=== PATIENT | male | born 1940 | race Caucasian/White ===

== ENCOUNTER 2019-10-10 12:34 | Outpatient (CLI) | payer MEDICARE, BC, SELFPAY ==
--- NOTE | 2019-10-10 12:15 | XRR_ITS ---
PROCEDURE INFORMATION: Exam: XR Abdomen, 1 View Exam date and time: 10/10/2019 12:51 PM Age: 79 years old Clinical indication: Condition or disease; Other: Ureteral calculus TECHNIQUE: Imaging protocol: XR of the abdomen. Views: Frontal supine view of the abdomen. 1 View. COMPARISON: CR Abdomen Series Acute [id number] 10/27/2016 1:47 AM FINDINGS: Gastrointestinal tract: Postsurgical stoma is seen in the left lower pelvis stable since prior. No bowel dilation. Bones/joints: Unremarkable. Negative for urinary tract stones. XR/XR KUB [id number] IMPRESSION: No acute findings. Stable surgical stoma left lower pelvis Negative for radiodense urinary tract stones
== END 2019-10-10 12:35 | disposition home or self-care (01) ==
LOC: RAD 12:38
PROVIDERS: Family Provider Family Medicine; PCP Family Medicine; Visit Provider Urology
DX: N20.1 Calculus of ureter (principal)
CPT/HCPCS: 74018; 81001; 87086

== ENCOUNTER → 2020-04-29 14:28 | Outpatient (BNVA) | payer MEDICARE, BC, SELFPAY | PROVIDERS: Family Provider Family Medicine; PCP Family Medicine; Visit Provider Urology | DX: R33.9 Retention of urine, unspecified (principal); N39.0 Urinary tract infection, site not specified; R97.20 Elevated prostate specific antigen [PSA] | CPT/HCPCS: 81001; 84153 ==

== ENCOUNTER 2020-08-29 13:14 | Emergency (ER) | payer MEDICARE, BC, SELFPAY ==
[2020-08-29] VITALS (7 sets, daily range): BP systolic 133–156; BP diastolic 65–91; PULSE 18–69; RESP 16–139; TEMP 36.9; O2SAT 94–98; BMI 33.0
--- NOTE | 2020-08-29 13:41 | ECG_ITS ---
[facility] Test Date: 2020-08-29 Pat Name: Dwight Cash Department: Room: Gender: Male Field Service Manager: : 1940 Requested By: Tenzin Gustafson Order Number: [id number] Eleazar MD: Jeremías Syed M.D. Measurements Intervals [place] Rate: 55 P: 2 FL: 257 QRS: 5 QRSD: 107 T: 67 QT: 429 QTc: 412 Interpretive Statements SINUS BRADYCARDIA WITH FIRST DEGREE AV BLOCK INFERIOR MYOCARDIAL INFARCTION , PROBABLY OLD [40+ ms Q WAVE AND/OR ST/T ABNORMALITY IN II/aVF] Compared to ECG 10/27/2016 01:52:03 First degree AV block now present Sinus rhythm no longer present Myocardial infarct finding still present Electronically Signed On 08-29-2020 16:40:14 MACHINE SETTER AUTOMATIC by Jeremías Syed M.D. [id number]
--- NOTE | 2020-08-29 13:41 | XRR_ITS ---
PROCEDURE INFORMATION: Exam: XR Chest, 1 View Exam date and time: 08/29/2020 2:06 PM Age: 80 years old Clinical indication: Chest pain TECHNIQUE: Imaging protocol: XR of the chest Views: 1 view. COMPARISON: CR Chest 1 [place] [id number] 08/21/2016 7:39 PM FINDINGS: Lungs: Unremarkable. No consolidation. Pleural space: Unremarkable. No pleural effusion. No pneumothorax. Heart/Mediastinum: Unremarkable. No cardiomegaly. Bones/joints: Unremarkable. XR/XR chest 1V portable [id number] IMPRESSION: No acute findings.
--- NOTE | 2020-08-29 14:25 | W.ED.CHESTPA ---
HPI - Chest Pain General: Chief Complaint: Chest Pain Stated Complaint: CHEST PAIN Time Seen by Provider: 08/29/20 13:34 History of Present Illness: HPI narrative: The patient is a 80-year-old maleWith past medical history colon cancer with colectomy and colostomy years ago. He comes to the ER today complaining of midsternal chest pain radiating to his right chest and arm. He says earlier this morning he was eating some eggs and swallowed some orange juice and immediately felt midsternal chest pain which then began to radiate to his right chest wall and arm. He thought it was because of the orange juice and it would have gone away quickly however it did not it persisted for an hour and has eased up a little bit but is still present in the ER. He also complains of 2 weeks of right nipple pain with minimal pressure to the area. No drainage from the nipple or structural changes. This pain is different than the right chest pain he is having MD complaint: chest pain Onset: after eating Pain location: substernal and right chest Pain radiation: right arm Severity: moderate Quality: sharp Associated symptoms: Reports nausea; Deny abdominal pain, dyspnea, palpitations or vomiting Review of Systems General: Reports: 10 or more systems reviewed and unremarkable except in HPI and below Const: Denies: fatigue Eyes: Denies: change in vision, blurry vision or eye redness ENMT: Denies: throat pain, swelling of lips/tongue, ear or mastoid pain or nasal congestion Card: Reports: chest pain and other (right nipple pain); Denies: palpitations, irregular heart rhythm, edema, dyspnea on exertion or orthopnea Resp: Denies: dyspnea, productive cough or non-productive cough GI: Reports: nausea; Denies: abdominal pain, vomiting, diarrhea or GI cramping : Denies: flank pain, urinary frequency or urinary urgency Musc: Denies: neck pain, back pain, extremity pain, joint pain, joint redness, limited range of motion or muscle weakness Skin/Breast: Denies: rash, pruritus, erythema, skin pain or skin tenderness Neuro: Denies: headache(s), numbness in extremities, weakness in extremities, sensory changes, difficulty walking, dizziness, confusion or Slurred speech present Psych: Denies: anxiety or depression Endo: Denies: polyuria All/Imm: Denies: urticaria, throat swelling or tongue swelling PFSH ED PFS: Medical History (Updated 08/29/20 @ 18:43 by Tenzin Gustafson MD) Elevated PSA Gross hematuria History of colon cancer HAS A 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 Mother No problems noted. Social History Smoking and tobacco status: former smoker Alcohol intake: never Adopted: No Caregiver/support person: No Lives independently: No Household members: spouse Marital status: Current occupational status: retired History of recent travel: No Physical Exam Const: COMMON NORMALS: no acute distress, average body habitus, patient oriented x3, no limitations, healthy appearing, alert and well nourished GENERAL APPEARANCE: cooperative, comfortable, well kempt and well developed ORIENTATION/CONSCIOUSNESS: Yes awake, Yes oriented to person, Yes oriented to place and Yes oriented to time HENMT: COMMON NORMALS: normocephalic, external ears normal and Normal external nose present HEAD & SCALP: normal to inspection and normocephalic NOSE: Normal external nose present EXTERNAL EAR: Yes external ears normal MOUTH: Normal oral and palatal mucosa present THROAT: posterior oropharynx normal Eye: COMMON NORMALS: Equal, round and reactive pupils present and EOMs intact bilaterally GENERAL EYE: appearance normal, both eyes and all related structures PUPIL: Yes Equal, round and reactive pupils present Neck/C-Spine: COMMON NORMALS: full ROM, no lymphadenopathy, no meningeal signs and no JVD GENERAL: Yes normal visual inspection Lymph: LYMPHATIC: no lymphadenopathy noted Chest: COMMONS NORMALS: normal inspection of the chest, normal palpation of entire chest wall and normal palpation of the breasts (Mild tenderness to right nipple. No mass palpated) Resp: COMMON NORMALS: normal respiratory effort, No retractions, No use of accessory muscles, clear to auscultation bilaterally and percussion normal EFFORT & INSPECTION: Yes able to speak in complete sentences AUSCULTATION: clear to auscultation bilaterally PERCUSSION: percussion normal Cardio: COMMON NORMALS: no JVD, regular rate, regular rhythm, S1 normal heart sound present, S2 normal heart sound present and Peripheral pulses 2+ throughout RATE: regular rate RHYTHM: regular rhythm HEART SOUNDS: S1 normal heart sound present and S2 normal heart sound present PERIPHERAL PULSES: Peripheral pulses 2+ throughout GI: COMMON NORMALS: Normal to inspection, nondistended, normoactive bowel sounds present, Soft to palpation, non-tender and no masses INSPECTION: Yes normal to inspection PALPATION: Yes Soft to palpation : COMMON NORMALS: Yes no CVA tenderness BLADDER/KIDNEY EXAM: Yes no CVA tenderness Back/Pelvis: COMMON NORMALS: no CVA tenderness, thoracic and lumbar spine normal to inspection, no thoracic nor lumbar tenderness and thoraco-lumbar ROM normal Extremity: COMMON NORMALS: normal to inspection, full ROM, capillary refill normal, no joint enlargement and no pedal edema GENERAL: Yes normal exam except as noted Neuro: COMMON NORMALS: patient oriented x3, CN's II-XII intact bilaterally, moves all extremities, no focal motor deficits, no sensory deficits noted and gait normal SENSORIUM/ORIENTATION: Yes alert, Yes oriented to person, Yes oriented to place and Yes oriented to time MENINGEAL SIGNS: Yes no meningeal signs Psych: COMMON NORMALS: mental status grossly normal, Normal thought process present, cooperative, normal affect and speech normal APPEARANCE: Yes well kempt ATTITUDE: Yes calm SPEECH: Yes normal speech THOUGHT PROCESS: Normal thought process present Skin: COMMON NORMALS: no rashes or lesions noted GENERAL SKIN EXAM: no rashes or lesions noted Course Vital Signs: Vital signs: Vital Signs Temperature 98.5 F 08/29/20 13:16 Pulse Rate 65 08/29/20 16:24 Respiratory Rate 16 08/29/20 16:24 Blood Pressure 136/65 08/29/20 16:24 Pulse Oximetry 98 08/29/20 16:24 MDM - Chest Pain Lab Data: Labs: Lab Results 08/29/20 08/29/20 08/29/20 Range/Units 14:20 14:22 14:22 WBC 6.7 (4.0-10.0) 10^3/ uL RBC 4.44 (4.1-5.3) 10^6/u L Hgb 13.7 (11.7-16.6) g/dL Hct 42.1 (42.0-52.0) % MCV 94.8 H (80-94) fL MCH 30.9 (28.0-34.0) pg MCHC 32.5 (30.0-36.0) g/dL RDW 13.6 (12.1-15.1) % Plt Count 208 (130-400) 10^3/c mm MPV 9.7 (7.4-10.4) fL Neut % (Auto) 61.5 % Lymph % (Auto) 24.6 % [place] % (Auto) 10.4 % Eos % (Auto) 2.5 % Baso % (Auto) 0.6 % Neut # (Auto) 4.11 (1.8-7.7) 10^3/u L Lymph # (Auto) 1.7 (0.8-4.8) 10^3/u L [place] # (Auto) 0.7 (0.2-0.9) 10^3/u L Eos # (Auto) 0.2 (0.0-0.8) 10^3/u L Baso # (Auto) 0.0 (0.0-0.1) 10^3/u L Nucleated RBC % (a uto) 0 % Nucleated RBCs # 0.0 /100WBC D-Dimer 0.39 (0-0.59) ug/mIFE U Sodium (136-145) mmol/L Potassium (3.5-5.1) mmol/L Chloride (98-107) mmol/L Carbon Dioxide (22-29) mmol/L Anion Gap (5-19) BUN (8-23) mg/dL Creatinine (0.7-1.2) mg/dL GFR Calculation Glucose (65-115) mg/dL Calculated Osmolal ity (285-295) mOsm/k g Calcium (8.5-10.5) mg/dL Total Bilirubin (0.15-1.2) mg/dL AST (0-40) U/L ALT (0-41) U/L Alkaline Phosphata se (40-130) IU/L Troponin T Baselin e (0-15) ng/L Troponin T 120 Min [place] (0-15) ng/L Delta Troponin T (0-10) ABS# NT-Pro-B Natriuret Pep (0-450) pg/mL Total Protein (6.6-8.7) g/dL Albumin (3.5-5.2) g/dL Globulin (1.3-4.6) g/dL Urine Color Yellow (Yellow) Urine Appearance Hazy A (CLEAR) Urine pH 8 H (5-7) Ur Specific Gravit y 1.020 (1.005-1.030) Urine Protein Neg (Negative) Urine Glucose (UA) Norm (Normal) Urine Ketones Negative (Negative) Urine Blood Neg (Negative) Urine Nitrate Negative (Negative) Urine Bilirubin Neg (Negative) Prot Sulfosalicyli c Acd Negative (Negative) Urine Urobilinogen Norm (Negative) mg/dL Ur Leukocyte Ashely ase Negative (Negative) Urine RBC None (0-2) /hpf Urine WBC Rare (0-5) /hpf Ur Squamous Epith Cells Rare (0-5) /hpf Amorphous Sediment 2+ /hpf Urine Bacteria Trace (NONE) /hpf 08/29/20 08/29/20 08/29/20 Range/Units 14:22 14:22 16:42 WBC (4.0-10.0) 10^3/ uL RBC (4.1-5.3) 10^6/u L Hgb (11.7-16.6) g/dL Hct (42.0-52.0) % MCV (80-94) fL MCH (28.0-34.0) pg MCHC (30.0-36.0) g/dL RDW (12.1-15.1) % Plt Count (130-400) 10^3/c mm MPV (7.4-10.4) fL Neut % (Auto) % Lymph % (Auto) % [place] % (Auto) % Eos % (Auto) % Baso % (Auto) % Neut # (Auto) (1.8-7.7) 10^3/u L Lymph # (Auto) (0.8-4.8) 10^3/u L [place] # (Auto) (0.2-0.9) 10^3/u L Eos # (Auto) (0.0-0.8) 10^3/u L Baso # (Auto) (0.0-0.1) 10^3/u L Nucleated RBC % (a uto) % Nucleated RBCs # /100WBC D-Dimer (0-0.59) ug/mIFE U Sodium 136 (136-145) mmol/L Potassium 4.4 (3.5-5.1) mmol/L Chloride 102 (98-107) mmol/L Carbon Dioxide 25 (22-29) mmol/L Anion Gap 13.4 (5-19) BUN 16 (8-23) mg/dL Creatinine 0.9 (0.7-1.2) mg/dL GFR Calculation Not Reportable Glucose 98 (65-115) mg/dL Calculated Osmolal ity 283 L (285-295) mOsm/k g Calcium 9.3 (8.5-10.5) mg/dL Total Bilirubin 0.4 (0.15-1.2) mg/dL AST 21 (0-40) U/L ALT 27 (0-41) U/L Alkaline Phosphata se 68 (40-130) IU/L Troponin T Baselin e 18 H (0-15) ng/L Troponin T 120 Min [place] 18.33 H (0-15) ng/L Delta Troponin T 0.33 (0-10) ABS# NT-Pro-B Natriuret Pep 118 (0-450) pg/mL Total Protein 5.6 L (6.6-8.7) g/dL Albumin 4.0 (3.5-5.2) g/dL Globulin 1.6 (1.3-4.6) g/dL Urine Color (Yellow) Urine Appearance (CLEAR) Urine pH (5-7) Ur Specific Gravit y (1.005-1.030) Urine Protein (Negative) Urine Glucose (UA) (Normal) Urine Ketones (Negative) Urine Blood (Negative) Urine Nitrate (Negative) Urine Bilirubin (Negative) Prot Sulfosalicyli c Acd (Negative) Urine Urobilinogen (Negative) mg/dL Ur Leukocyte Ashely ase (Negative) Urine RBC (0-2) /hpf Urine WBC (0-5) /hpf Ur Squamous Epith Cells (0-5) /hpf Amorphous Sediment /hpf Urine Bacteria (NONE) /hpf Discharge Plan Discharge Patient Disposition: Home Clinical Impression: Gastroenteritis, Atypical chest pain Condition: Stable Prescriptions: New Zofran 4 mg tablet 4 mg PO Q8H PRN (Reason: nausea and vomiting) 5 Days Qty: 14 RF: 0 No Action cholecalciferol (vitamin D3) 10 mcg (400 unit) capsule 10 mcg PO DAILY@08 RF: 0 alfuzosin 10 mg tablet extended release 24 hr 10 mg PO DAILY@18 RF: 0 omega-3 fatty acids 1,000 mg capsule 1,000 mg PO DAILY@08 RF: 0 ascorbate calcium (vitamin C) 500 mg tablet 500 mg PO DAILY@08 RF: 0 magnesium oxide 400 mg (241.3 mg magnesium) tablet 400 mg PO DAILY@08 RF: 0 Centrum Silver Ultra Men's 300-600-300 mcg tablet 1 tab PO DAILY@08 RF: 0 losartan 25 mg tablet 25 mg PO DAILY@18 RF: 0 carvedilol 3.125 mg tablet 3.125 mg PO BID@08,18 RF: 0 timolol 0.25 % drops 1 drop ophthalmic (eye) DAILY@08 RF: 0 ciprofloxacin HCl 500 mg tablet 500 mg PO DAILY PRN (Reason: infection) RF: 0 Zyrtec 10 mg Tablet 10 mg PO DAILY@18 RF: 0 aspirin 81 mg Tablet,Chewable 81 mg PO DAILY@18 RF: 0 finasteride 5 mg tablet 5 mg PO DAILY@08 RF: 0 Discharge Orders: Discharge ED (Routine); Ordered 08/29/20 Ordered By: Tenzin Gustafson Referrals: Mustapha Mendoza MD [Primary Care Provider] - Discharge Diet: Usual diet Discharge Activity: Increase activity as tolerated Patient Instructions: Gastroenteritis (ED) Activity Restrictions/Additional Instructions: You likely have a stomach bug. Please drink lots of fluids and return to the ER with worsening symptoms. The chest pain you have had is not typical of a heart attack pain. I have put in a case management referral to get you an appointment with a local other sports official please follow-up and get a stress test and echocardiogram if the doctor thinks it is clinically indicated at that time. Return to the ER with worsening chest pain and we will admit you for a stress test. I have prescribed you Zofran to help with the nausea until your symptoms improve. Coding Level of Care Code ED Printing Press Operator Apprentice for Marija Fwuma Exam Comprehensive
[2020-08-29 15:04] LABS: Basophils % 0.6 %; Eosinophils # 0.2 10^3/uL (0.0-0.8); Eosinophils % 2.5 %; Hematocrit 42.1 % (42.0-52.0); Hemoglobin 13.7 g/dL (11.7-16.6); Lymphocytes # 1.7 10^3/uL (0.8-4.8); Lymphocytes % 24.6 %; Mean Corpuscular HGB Conc 32.5 g/dL (30.0-36.0); Mean Corpuscular Hemoglobin 30.9 pg (28.0-34.0); Mean Corpuscular Volume 94.8 fL (80-94); Mean Platelet Volume 9.7 fL (7.4-10.4); Monocytes # 0.7 10^3/uL (0.2-0.9); Monocytes % 10.4 %; Neutrophils # 4.11 10^3/uL (1.8-7.7); Neutrophils % 61.5 %; Nucleated Red Blood Cells % 0 %; Platelet Count 208 10^3/cmm (130-400); Red Blood Count 4.44 10^6/uL (4.1-5.3); Red Cell Distribution Width 13.6 % (12.1-15.1); White Blood Count 6.7 10^3/uL (4.0-10.0)
[2020-08-29 15:17] LABS: D Dimer 0.39 ug/mIFEU (0-0.59)
[2020-08-29 15:27] LABS: Urine Appearance Hazy (CLEAR); Urine Color Yellow (Yellow); pH Urine 8 (5-7)
[2020-08-29 15:27] LABS: Troponin(5th) Baseline 18 ng/L (0-15)
[2020-08-29 15:30] LABS: Glucose Urine UA Norm (Normal); Ketones Urine Negative (Negative); Protein Urine Neg (Negative)
[2020-08-29 15:31] LABS: Add Urine Microscopic? YES; Bilirubin Urine Neg (Negative); Blood Urine Neg (Negative); Leukocyte Esterase Urine Negative (Negative); Nitrate Urine Negative (Negative); Sulfosalicylic Acid Urine Negative (Negative); Urobilinogen Urine Norm (Negative)
[2020-08-29 15:33] LABS: Add Urine Culture? No; Amorphous Sediment Urine 2+ /hpf; Bacteria Urine TRACE /hpf; Squamous Epithelial Cell Urine RARE /hpf (0-5); WBC Urine RARE /hpf (0-5)
[2020-08-29 15:36] LABS: Alanine Aminotransferase 27 U/L (0-41); Alkaline Phosphatase 68 IU/L (40-130); Aspartate Amino Transferase 21 U/L (0-40); Blood Urea Nitrogen 16 mg/dL (8-23); Calcium 9.3 mg/dL (8.5-10.5); Carbon Dioxide 25 mmol/L (22-29); Chloride 102 mmol/L (98-107); Globulin 1.6 g/dL (1.3-4.6); Glucose 98 mg/dL (65-115); NT Pro B Type Natriuretic Pept 118 pg/mL (0-450); Osmolality Calculated 283 mOsm/kg (285-295); Sodium 136 mmol/L (136-145); Total Bilirubin 0.4 mg/dL (0.15-1.2); Total Protein 5.6 g/dL (6.6-8.7)
--- NOTE | 2020-08-29 15:41 | ECG_ITS ---
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 Measurements Intervals [place] Rate: 55 P: 32 [place]: 257 QRS: 32 QRSD: 102 T: 72 QT: 414 QTc: 399 Interpretive Statements SINUS BRADYCARDIA WITH FIRST DEGREE AV BLOCK Compared to ECG 08/29/2020 13:28:06 Myocardial infarct finding no longer present Electronically Signed On 08-29-2020 16:47:05 KILN HAND by Jeremías Syed M.D. [id number]
[2020-08-29 15:59] LABS: Anion Gap 13.4 (5-19); Potassium 4.4 mmol/L (3.5-5.1)
[2020-08-29] MEDS: lidocaine 2% viscous 15 ML, aluminum-mag hydrox-simethicon 30 ML, sucralfate oral liq 1 GM PO (16:34)
[2020-08-29] MEDS: ondansetron 2 mg/ML SDV 2 mL 4 MG IVP (16:35)
[2020-08-29 17:22] LABS: Troponin 5 2HR 18.33 ng/L (0-15); Troponin 5 2HR Delta 0.33 ABS# (0-10)
--- NOTE | 2020-08-31 11:21 | DCPLANNER ---
golf course manager had message to schedule a follow up appointment for patient with cardiology. golf course manager called [facility], spoke with Jaqui, gave clinic patients information. A follow up appointment was scheduled for Sunday, September 22, 2019 at 9:[address] Mendoza. golf course manager called patient with appointment information.
--- NOTE | 2020-10-16 14:39 | DCPLANNER ---
Patient had a followup appointment scheduled for 09.22.19 with [facility] - patient did attend appointment.
== END 2020-08-29 18:53 | disposition home or self-care (01) ==
PROVIDERS: Emergency Provider Family Medicine; PCP Family Medicine
DX: R07.89 Other chest pain (principal); K52.9 Noninfective gastroenteritis and colitis, unspecified; Z79.82 Long term (current) use of aspirin; Z85.038 Personal history of other malignant neoplasm of large intestine; Z93.3 Colostomy status; Z87.891 Personal history of nicotine dependence
CPT/HCPCS: 12345; 36415; 71045; 80053; 81001; 83880; 84484; 85025; 85378; 93005; 96374; 99283; 99284; J2405

== ENCOUNTER 2020-09-23 08:59 | Outpatient (CLI) | payer MEDICARE, BC, SELFPAY ==
--- NOTE | 2020-09-23 09:25 | MM_ITS ---
WS: [id number] BILATERAL DIGITAL DIAGNOSTIC MAMMOGRAM MAMMOGRAPHY WITH CAD CLINICAL INFORMATION: RIGHT BREAST PAIN COMPARISON: None. TECHNIQUE: Bilateral CC, MLO, and ML views. FINDINGS: Scattered fibroglandular densities bilaterally. Punctate calcifications. Palpable marker right breast . Slightly asymmetric fibroglandular tissue in the area of palpable concern compared to the left. Ult rasound is pending. ULTRASOUND BREAST RIGHT TECHNIQUE: Ultrasound right breast focused area of concern. CLINICAL INFORMATION: RIGHT BREAST PAIN COMPARISON: None. FINDINGS: Ultrasound right breast at the areola in the area of concern. Normal shadowing deep to the areola wit h a few incidental dilated ducts. Left breast for comparison. No evidence of pathologic mass or lesio n to target for biopsy. Findings have a benign appearance. MM/[place] [id number] IMPRESSION: BI-RADS: 2-Benign FOLLOW UP: See Report
== END 2020-09-23 09:00 | disposition home or self-care (01) ==
LOC: RADSHAW 09:05
PROVIDERS: PCP Family Medicine; Visit Provider Family Medicine
DX: N64.4 Mastodynia (principal)
CPT/HCPCS: 76642; 77066

== ENCOUNTER 2020-10-01 14:13 | Outpatient (CLI) | payer MEDICARE, BC, SELFPAY ==
--- NOTE | 2020-10-01 14:15 | USCV_ITS ---
Dwight Cash Age: 80 Gender: M : 1940 Exam Date: 10/01/2020 14:50 Ordering Phys: Lani Mendoza MD ([email or web address]) Technologist: Katheryn Landers Exam Location: [facility] Indication: AV STENOSIS BP: 150 / 77 HR: 75 Rhythm: Sinus Technical Quality: Adequate MEASUREMENTS (Male / Female) Normal Values 2D ECHO LV Diastolic Diameter PLAX 4.1 cm 4.2 - 5.9 / 3.9 - 5.3 cm LV Systolic Diameter PLAX 1.9 cm LV Chamber Size 2.7 cm IVS Diastolic Thickness 1.8 cm 0.6 - 1.0 / 0.6 - 0.9 cm IVS Systolic Thickness 1.8 cm LVPW Diastolic Thickness 2.5 cm 0.6 - 1.0 / 0.6 - 0.9 cm LVPW Systolic Thickness 3.1 cm RV Chamber Size 2.8 cm LVOT Diameter 2.0 cm LV Ejection Fraction 2D Teich 85.5 % LV Ejection Fraction MOD 2C 53.0 % LV Ejection Fraction 2C AL 53.7 % LA Diameter 3.7 cm LA Width 3.4 cm LA Height 3.9 cm RA Width 3.2 cm RA Height 4.5 cm Aorta at Sinotubular Diameter 2.9 cm M-MODE LV Diastolic Diameter MM 6.0 cm 4.2 - 5.9 / 3.9 - 5.3 cm LV Systolic Diameter MM 4.1 cm LV Ejection Fraction MM Teich 59.7 % IVS Diastolic Thickness MM 1.2 cm 0.6 - 1.0 / 0.6 - 0.9 cm IVS Systolic Thickness MM 1.3 cm LVPW Diastolic Thickness MM 0.9 cm 0.6 - 1.0 / 0.6 - 0.9 cm LVPW Systolic Thickness MM 1.8 cm Aortic Annulus Diameter 3.5 cm LA Ao Ratio MM 1.1 MV E Point Septal Separation 1.3 cm DOPPLER AV Peak Velocity 240.5 cm/s LVOT Peak Velocity 134.7 cm/s AV Area Cont Eq vti 2.1 cm squared AV Area Cont Eq pk 1.8 cm squared MV Area PHT 4.0 cm squared Mitral E to A Ratio 0.7 MV E' Velocity 47.5 cm/s Mitral E to MV E' Ratio 11.1 Mitral E to LV E' Lateral Ratio 11.1 Mitral E to LV E' Septal Ratio 11.2 TR Peak Velocity 209.5 cm/s TR Peak Gradient 17.6 mmHg TV Peak E Velocity 46.0 cm/s Right Atrial Pressure 3.0 mmHg Pulmonary Artery Systolic Pressu 20.6 mmHg PV Peak Velocity 84.0 cm/s RV Acceleration Time 0.2 s RV Ejection Time 0.5 s RV AcT/ET 0.4 FINDINGS Left Ventricle Normal left ventricular size, systolic function and increased wall thickness, with no regional wall motion abnormalities. Left ventricular ejection fraction is estimated at 68 %. Grade I diastolic dysfunction (abnormal relaxation filling pattern), normal to mildly elevated filling pressures. Right Ventricle Normal right ventricular size and systolic function. Right ventricular systolic pressure 20.6 mmHg. Right Atrium Normal right atrial size. Left Atrium Normal left atrial size. Mitral Valve Moderate mitral annular calcification. No mitral valve stenosis. Trace mitral valve regurgitation. Aortic Valve Aortic valve not well visualized. Thickened aortic valve. Mild aortic valve stenosis, peak velocity 2.7 m/s, mean gradient 10.5 mmHg, ANMOL 1.9 cm squared. No aortic valve regurgitation. Tricuspid Valve Structurally normal tricuspid valve. Pulmonic Valve Pulmonic valve not well visualized. Pericardium No pericardial effusion. Aorta Normal size aortic root and proximal ascending aorta. CONCLUSIONS 1. Normal left ventricular size, systolic function and increased wall thickness, with no regional wall motion abnormalities. Left ventricular ejection fraction is estimated at 68 %. Grade I diastolic dysfunction (abnormal relaxation filling pattern), normal to mildly elevated filling pressures. 2. Normal right ventricular size and systolic function. 3. Normal pulmonary artery pressure. 4. Mild aortic valve stenosis, peak velocity 2.7 m/s, mean gradient 10.5 mmHg, ANMOL 1.9 cm squared. 5. When compared to previous echocardiogram dated 01/05/2017, there may not have been any significant change. Lani Mendoza MD (Electronically Signed) Final Date: 05 October 2020 17:34 S
== END 2020-10-01 14:14 | disposition home or self-care (01) ==
LOC: US 14:16
PROVIDERS: PCP Family Medicine; Visit Provider Internal Medicine Cardiovascular Disease
DX: I35.0 Nonrheumatic aortic (valve) stenosis (principal)
CPT/HCPCS: 93306

== ENCOUNTER → 2020-11-05 10:11 | Outpatient (BNVA) | payer MEDICARE, BC, SELFPAY | PROVIDERS: PCP Family Medicine; Visit Provider Urology | DX: R33.9 Retention of urine, unspecified (principal); N40.1 Benign prostatic hyperplasia with lower urinary tract symptoms; N39.0 Urinary tract infection, site not specified | CPT/HCPCS: 81003 ==

== ENCOUNTER → 2021-05-06 09:25 | Outpatient (BNVA) | payer MEDICARE, BC, SELFPAY | PROVIDERS: PCP Family Medicine; Visit Provider Urology | DX: N40.1 Benign prostatic hyperplasia with lower urinary tract symptoms (principal); I10 Essential (primary) hypertension; N39.0 Urinary tract infection, site not specified | CPT/HCPCS: 81003 ==

== ENCOUNTER → 2021-05-21 10:55 | Outpatient (BNVA) | payer MEDICARE, BC, SELFPAY | PROVIDERS: PCP Family Medicine; Visit Provider Urology | DX: N40.1 Benign prostatic hyperplasia with lower urinary tract symptoms (principal) | CPT/HCPCS: 87635 ==

== ENCOUNTER 2021-05-27 15:26 | Observation (INO) | payer MEDICARE, BC, SELFPAY ==
[2021-05-26 13:22] VITALS: BMI 32.5
[2021-05-27] VITALS (19 sets, daily range): BP systolic 128–173; BP diastolic 71–98; PULSE 52–80; RESP 13–24; TEMP 36.3–37.1; O2SAT 92–98; BMI 33.0
[2021-05-27] MEDS: sodium chloride 0.9% 1,000 ML 30 ML IV (12:46)
--- NOTE | 2021-05-27 13:22 | W.PM.OPSUD ---
Surgery/Procedure H&P Update DATE OF PROCEDURE: May 27, 2021 DATE H&P PERFORMED: 05/06/21 H&P UPDATE INFORMATION: I have reviewed H&P completed within last 30 days, No changes to prior documentation and H&P is in [facility] EMR on date indicated PREOP DIAGNOSIS: BPH/obstruction PLANNED PROCEDURE: Operation Date: 05/27/21 12:45 Proposed Procedures p Cystoscopy 97636 N40.1(Not Applicable) - Luis Mojica MD s Transurethral Resection/vaporization Of Prostate(Not Applicable) - Luis Mojica MD
[2021-05-27] MEDS: levofloxacin-dextrose 5 % 500 MG/100 ML PREMIX 100 MG IV (13:25)
--- NOTE | 2021-05-27 13:37 | ANES.PREANE2 ---
Pre-Anesthetic Assessment Pre-Anesthetic Assessment: Height/Weight: Height 1.79 m Weight 104.326 kg Temp Pulse Resp BP Pulse Ox 98.3 F 64 18 164/84 95 05/27/21 12:32 05/27/21 12:32 05/27/21 12:32 05/27/21 12:32 05/27/21 12:32 Preop Diagnosis: BPH/obstruction Proposed Procedure: Operation Date: 05/27/21 12:45 Proposed Procedures p Cystoscopy 65619 N40.1(Not Applicable) - Luis Mojica MD s Transurethral Resection/vaporization Of Prostate(Not Applicable) - Luis Mojica MD Was Beta Robbi taken within 24 hours: Yes Was Clonidine taken within 24 hours: N/A Last intake: Intake Last Liquid Date 05/27/21 Last Liquid Time 07:00 Last Solid Date 05/26/21 Last Solid Time 16:00 Social: Social History: No alcohol and No tobacco Exam: Pre-Anes Outpt Exam: alert, oriented x 3, clear to auscultation bilaterally and regular rate & rhythm Airway: Submandibular: WNL Cervical ROM: WNL MP: 2 Dentition: Chipped CV/HEM: CV/HEM: CHF, HTN and Murmur Comments: Metabolic: Metabolic: Morbid obesity Anesthetic Plan: ASA status: 3 Anesthesia: General Risk of > 500 ml blood loss (7ml/kg in children): No Meds/Allergies Current Medications: Current Medications Generic Name Dose Route Start Last Admin Trade Name Freq PRN Reason Stop Dose Admin Sodium Chloride 1,000 mls @ 30 ml s/hr 05/27/21 12:30 05/27/21 12:46 Sodium Chloride 0.9% IV 05/28/21 12:29 30 mls/hr .Q24H YOANA Administration PFSH Anesthesia PFSH: Medical History BPH loc w urin obs/LUTS Elevated PSA Gross hematuria History of colon cancer HAS A COLOSTOMY 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 Mother No problems noted. Social History Smoking and tobacco status: former smoker Alcohol intake: never Adopted: No Caregiver/support person: No Lives independently: No Household members: spouse Marital status: Current occupational status: retired History of recent travel: No Data Anesthesia Cardiac Studies: No Data to Display
--- NOTE | 2021-05-27 14:36 | P.OP_ITS ---
Operative Report Date of procedure: May 27, 2021 Pre-op Diagnosis: BPH/obstruction Post-op diagnosis: same Procedure Done: 1. Cystoscopy, transurethral resection/vaporization of the prostate Pathology: Prostate chips Surgeon: Galina Anesthesia: General Estimated blood loss: <75 cc Urine output: Not measured Complications: None Findings: Trilobar enlargement of the prostate. Wide open at the completion of the procedure. Good hemostasis obtained. All chips evacuated from the bladder. Condition: stable Disposition: PACU Brief History: Dwight is a very pleasant 80-year-old white male with longstanding progressive history of BPH/obstruction with failure to improve adequately on medical therapy. Ultimately he requested TURP as an attempt at definitive therapy and to be able to stop his medical therapy for BPH. No cont raindications to procedure. Procedure: After routine preoperative evaluation examination and obtaining of informed consent he was taken to the operating suite on 05/27/2021 where general anesthesia was administered without difficulty after appropriate timeout was performed, SCDs confirmed to be functioning, preoperative antibiotics administered, beta-elisabeth protocol confirmed. Prepped and draped in the usual sterile fashion in dorsolithotomy position paying careful attention to avoiding pressure points. 21 Maltese cystoscope with 30 degree lens was introduced into the urethral meatus and advanced into the bladder under videoscopy. Bladder was systematically examined. Orifices were well away from the bladder neck. Verumontanum was easily identified. Preoperative cystoscopy findings were confirmed. The urethra was then calibrated with [place] sounds and easily accommodated 32 Maltese. 2% lidocaine jelly was instilled into the urethra and a 25 Maltese well- lubricated resectoscope sheath with visual obturator in place was advanced into the bladder without difficulty. The gyrus bipolar system with super loop initially was utilized for resection. The orifices were again established as far as location of well away from the bladder neck as was the distal landmark of the verumontanum. Resection was begun at the bladder neck at the 2 o'clock position and resected down to the surgical capsule out from the bladder neck to the verumontanum but not distal to it. Resection was then continued from the 2 o'clock position down to about the 5 o'clock position in the same longitudinal extent and depth. Similar resection was performed on the other side from the 10:00 down to the 7 o'clock position. The 12 o'clock position was then resected as well. This allowed free flow of fluid into the bladder. The floor had a lot of tissue remaining and it was also resected with the soup. After the bulk of the tissue was resected there was a small amount of tissue remaining at the level of verumontanum on the lateral lobes and this was carefully resected avoiding resecting distal to the verumontanum. The chips were evacuated from the bladder. The orifices were confirmed to be well away from resection. The button probe was then utilized to vaporize remaining tissue within the prostatic fossa and sculpt the opening. This allowed meticulous hemostasis as well as further opening of the fossa. A 3:00 9:00 and 6:00 incision was made with vaporization current to further spring open the bladder neck. All chips were confirmed to be out of the bladder and with the bladder for the most part decompressed hemostasis was obtained with the button probe and was meticulous. A 22 Maltese three-way Kang catheter with 30 cc balloon was then advanced wi thout difficulty into the bladder. The efflux was clear. The balloon inflated with 45 cc and function was confirmed again with irrigation. CBI was initiated with normal saline. Catheter was functioning well and the procedure was completed he tolerated procedure well without complications and was awakened in the operating room and returned to the recovery room in stable condition. PLANS: 1. Admit to observation status to [facility]. 2. Anticipate voiding trial tomorrow if urine is clear enough and hopefully discharged without catheter if he voids well.
--- NOTE | 2021-05-27 15:49 | SUR.PHASEI ---
PT AWAKE ALERT ON RA HAMILTON PATENT OF CLEAR URINE CBI INFUSING AT MOC RATE, 500 IN 900 OUT SO FAR, PT IN HOLDING WAITING FOR BED TO BE CLEANED.
--- NOTE | 2021-05-27 16:02 | ANE.PACU2 ---
Inpatient post-anesthesia follow up: Airway intact: Yes Vital signs: Temperature 98 F Pulse Rate 54 Respiratory Rate 14 Blood Pressure 156/82 Pulse Oximetry 92 Oxygen Delivery Me thod Room Air Oxygen Flow Rate 8 Fraction of Inspir ed Oxygen Hydration adequate: Yes Nausea and vomiting: No Pain level: 2 Mental status: Baseline
[2021-05-27] MEDS: docusate sodium 100 mg Capsule PO (17:24)
[2021-05-27] MEDS: carvedilol 3.125 mg Tablet PO (17:24)
[2021-05-27] MEDS: losartan 50 mg Tablet 25 MG PO (17:24)
[2021-05-27] MEDS: dextrose 5%-sod chloride 0.9% 1,000 ML 75 ML IV (17:25)
[2021-05-27] MEDS: alfuzosin 10 mg ER Tablet PO (17:38)
[2021-05-28] VITALS: BP 138/78; PULSE 98; RESP 19; TEMP 36.8; O2SAT 94
[2021-05-28 04:00] VITALS: BP 154/78; PULSE 97; RESP 17; TEMP 36.6; O2SAT 95
[2021-05-28] MEDS: dextrose 5%-sod chloride 0.9% 1,000 ML 75 ML IV (05:53)
[2021-05-28 08:00] VITALS: BP 151/80; PULSE 80; RESP 18; TEMP 36.4; O2SAT 92
[2021-05-28] MEDS: carvedilol 3.125 mg Tablet PO (10:07)
[2021-05-28] MEDS: docusate sodium 100 mg Capsule PO (10:08)
--- NOTE | 2021-05-28 10:09 | PC.NURSE ---
While rounding with patient, he states that Dr. Mojica approved for the patient to have 2 visitors bring his medications up: his spouse and his daughter. His spouse is unable to come by herself as she has had a CVA in the past and is unable to navigate and ambulate on her own. He states that when they came in, they were not allowed to come up by the front maker lockstitch. I called and spoke with patient's daughter and she is still in town, so I asked her to please come back. I called to the front maker lockstitch and informed them of the approval and allow the family to come up. They verbalize understanding. I updated Power Schultz RN and Dr. Mojica.
[2021-05-28] MEDS: timolol 0.25% Op Soln 5 mL Btl 1 DROP EYE-BOTH (10:24)
--- NOTE | 2021-05-28 11:56 | PC.NURSE ---
Dr. Mojica notified of urinary retention and use of straight cath per doctors orders, new order received for insert bob 18 maltese.
[2021-05-28 12:00] VITALS: BP 161/79; PULSE 71; RESP 18; TEMP 36.7; O2SAT 95
--- NOTE | 2021-05-28 14:17 | PC.CHAP ---
Pastoral Care Encounter/Spiritual Assessment Type of Contact [] Declined director of social work visit [] Patient/Family/Request visit [] Outpatient visit [] Follow-up visit [] Physician referral [] Code/Alert [xx] Routine visit [] Staff referral [] Actively dying [] Patient sleeping [] Family support [] [] Out of room [] Palliative care [] [] Receiving care in room [] Pre-surgical visit [] Trauma [] Long length of stay [] ICU visit [] Other: Relational/Emotional Strength [xx] Patient feels connected with others/family/visitors/staff [] Distress [] Loneliness/isolation [] Abandonment Spirituality of Patient [xx] Person of Nelsy [xx] Attends Bahai of their Nelsy [xx] Believes in Prayer [xx] Reads Bible or Gnosticism materials [] There are Spiritual issues to be addressed Filtration Supervisor Interventions [xx] Prayer [xx] Active listening [xx] Non-anxious presence [] Spiritual/emotional support [] Crisis/trauma care [] Spiritual counseling [] Bereavement support [] Provided bereavement packet [] Provided Bible/devotional materials [] Provided toy/stuffed animal, coloring book to patient or family member [] Provided Communion [] Anointing/[place] [] Salvation [xx] Completed spiritual assessment [] Other: Impact on Illness or Injury [] Angry [] Fearful [] Anxious [] Often cries [] Exhaustion [] Unable to work [] Unable to attend orthodox [] Unable to walk/stand [] Unable to read [] Unable to drive [] Unable to eat/drink [] Unable to sleep [] Unable to be with family [] Patient intubated [] Other: Summary Patient was being visited by 2 of his daughters. Patient and daughters were all very pleasant and easy to talk to. Patient is feeling much better and stated he knows God is in control of his situation. Time spent with patient 7 minutes
--- NOTE | 2021-05-28 14:31 | PC.NURSE ---
demonstrated to patient how to remove bob bag and change to leg bag, drain, and care for catheter, patient able to return demonstration and all questions answered, patient feels safe to discharge home with catheter in place.
[2021-05-28 15:54] VITALS: BP 161/79; PULSE 71; RESP 18; TEMP 36.7; O2SAT 95
--- NOTE | 2021-05-29 10:09 | PM.DCS ---
Discharge Providers Date of Admission: 05/27/21 15:26 Date of Discharge: May 29, 2021 Attending Provider at Admission: Luis Mojica MD Attending Provider at Discharge: Luis Mojica MD Primary Care Provider: Mustapha Mendoza MD Diagnoses at Discharge Discharge Diagnosis (1) BPH loc w urin obs/LUTS: Status: Acute Reason for Visit Reason for Visit: Refractory BPH/obstruction Hospital Course Hospital Course Admitted on the day of the procedure 05/27/2021. Underwent transurethral resection/vaporization of prostate with wide open prostatic fossa and hemostatic condition postop. Catheter was removed on postop day #1 but he failed to adequately empty and the catheter was replaced and he was discharged on evening of postoperative day #1. No untoward events during his hospital stay. No significant bleeding etc. Discharged in stable condition Physical Exam Const: COMMON NORMALS: no acute distress, alert and well nourished GENERAL APPEARANCE: well kempt and well developed ORIENTATION/CONSCIOUSNESS: not confused HENMT: COMMON NORMALS: normocephalic and atraumatic HEAD & SCALP: normocephalic and atraumatic Eye: COMMON NORMALS: conjunctivae normal CONJUNCTIVA: Yes conjunctivae normal Neck/C-Spine: COMMON NORMALS: full ROM GENERAL: Yes normal visual inspection Resp: COMMON NORMALS: normal respiratory effort EFFORT & INSPECTION: No labored and No Actively coughing Neuro: SENSORIUM/ORIENTATION: Yes alert Psych: COMMON NORMALS: mental status grossly normal APPEARANCE: Yes grossly normal and Yes well kempt ATTITUDE: Yes calm and Yes engaged Skin: COMMON NORMALS: no rashes or lesions noted and no jaundice GENERAL SKIN EXAM: no rashes or lesions noted Urinary Catheter Management^: Kang: Cath Placed During This Visit: yes, but has since been removed by the nurse Reason for Continuing Indwelling Catheter: Accurate Measurement of Urinary Output in Critically Ill Patients Urinary Catheter Date of Insertion: 05/28/21 Urinary Catheter Time of Insertion: 12:30 Date Urinary Catheter Removed: 05/28/21 Time Urinary Catheter Discontinued: 06:43 Discharge Data Data Completed and Pending: Pending at discharge Category Date Time Status Pathology: Surgic al [PTH] Routine Pth 05/27/21 14:50 Received Vitals: Last Vital Signs Temp 98.1 F 05/28/21 15:54 Pulse 71 05/28/21 15:54 Resp 18 05/28/21 15:54 BP 161/79 05/28/21 15:54 Pulse Ox 95 05/28/21 15:54 Discharge Plan Discharge Patient Disposition: Home Condition: Stable Prescriptions: New cephalexin 500 mg capsule 500 mg PO BID 10 Days Qty: 20 RF: 0 Continued cholecalciferol (vitamin D3) 10 mcg (400 unit) capsule 10 mcg PO DAILY@08 RF: 0 alfuzosin 10 mg tablet extended release 24 hr 10 mg PO DAILY@18 Qty: 90 RF: 3 omega-3 fatty acids 1,000 mg capsule 1,000 mg PO DAILY@08 RF: 0 ascorbate calcium (vitamin C) 500 mg tablet 500 mg PO DAILY@08 RF: 0 magnesium oxide 400 mg (241.3 mg magnesium) tablet 400 mg PO DAILY@08 RF: 0 Centrum Silver Ultra Men's 300-600-300 mcg tablet 1 tab PO DAILY@08 RF: 0 losartan 25 mg tablet 25 mg PO DAILY@18 RF: 0 carvedilol 3.125 mg tablet 3.125 mg PO BID@08,18 RF: 0 timolol 0.25 % drops 1 drop ophthalmic (eye) DAILY@08 RF: 0 cetirizine [Zyrtec] 10 mg Tablet 10 mg PO DAILY@18 RF: 0 Held aspirin 81 mg Tablet,Chewable 81 mg PO DAILY@18 RF: 0 Hold Instructions: Resume on 06/07/21. Discharge Orders: Discharge Order (Routine); Ordered 05/28/21 Ordered By: Luis Mojica Referrals: Luis Mojica MD [Physician] - 06/08/21 1:30 pm (Voiding trial, [facility]) Discharge Diet: Advance as tolerated Discharge Activity: Limit activity as instructed Patient Instructions: Cephalexin (By mouth), Opioid Safety Activity Restrictions/Additional Instructions: 1. No lifting >10 pounds for 2 to 3 weeks. 2. We will see you back in clinic mid-to-late next week for voiding trial. 3. Please call the hospital power brake operator over the weekend or after hours if you have any concerns or questions. They can reach me. Discharge Attestations Time Spent in Discharge Care*: less than 30 min Quality Metrics Clinical Quality Measures During this hospital stay, did patient experience: None Coding Level of Care Code Acute Chg FW DC note Diagnoses BPH loc w urin obs/LUTS N40.1
--- NOTE | 2021-06-01 11:12 | PC.SOCIAL ---
discharge follow up call made, spoke with pts . she reports pt is doing very well. antibiotics picked up from the pharmacy and pt is taking as directed. is aware to hold aspirin until 06-07. patient has follow up appointment with dr. fiore 06-08 and she is aware. patient was discharged home with bob cath. prior to discharge patient was given instructions for cath care, reports he is doing well with cath. patient is refraining from lifting more than 10lbs. no questions or concerns voiced.
== END 2021-05-28 15:55 | disposition home or self-care (01) ==
LOC: MEDSURG 15:26
PROVIDERS: Admitting Provider Urology; PCP Family Medicine; Visit Provider Urology
PROC: 0TJB8ZZ Inspection of Bladder, Via Natural or Artificial Opening Endoscopic (ICD-10-PCS; CPT 52000; principal; 2021-05-27 12:45)
PROC: 0VT08ZZ Resection of Prostate, Via Natural or Artificial Opening Endoscopic (ICD-10-PCS; CPT 52601; 2021-05-27 12:45)
DX: N40.1 Benign prostatic hyperplasia with lower urinary tract symptoms (principal); N13.8 Other obstructive and reflux uropathy; I11.0 Hypertensive heart disease with heart failure; I50.9 Heart failure, unspecified; E66.01 Morbid (severe) obesity due to excess calories; Z68.33 Body mass index [BMI] 33.0-33.9, adult; I10 Essential (primary) hypertension; Z87.891 Personal history of nicotine dependence
CPT/HCPCS: 52601; 51702; 51798; 88305; 96365; G0378; J1100; J1956; J2405; J2704; J2710; J3010; J3490; J7030

== ENCOUNTER → 2021-08-12 09:13 | Outpatient (BNVA) | payer MEDICARE, BC, SELFPAY | PROVIDERS: PCP Family Medicine; Visit Provider Urology | DX: N40.1 Benign prostatic hyperplasia with lower urinary tract symptoms (principal) | CPT/HCPCS: 81003 ==

== ENCOUNTER → 2021-10-01 13:46 | Outpatient (BNVA) | payer MEDICARE, BC, SELFPAY | PROVIDERS: PCP Family Medicine; Visit Provider Surgery | DX: Z11.52 Encounter for screening for COVID-19 (principal) | CPT/HCPCS: 87635 ==

== ENCOUNTER 2021-10-06 05:58 | Day surgery (SDC) | payer MEDICARE, BC, SELFPAY ==
[2021-10-04 10:54] VITALS: BMI 33.0
[2021-10-06 06:21] VITALS: BP 155/94; PULSE 80; RESP 18; TEMP 36.6; O2SAT 94
[2021-10-06] MEDS: sodium chloride 0.9% 1,000 ML 30 ML IV (06:35)
--- NOTE | 2021-10-06 07:18 | W.PM.OPSFHP ---
Same Day Surgery H&P Indication for Procedure/HPI DATE OF PROCEDURE: October 06, 2021 CHIEF COMPLAINT/INDICATIONFOR SURGICAL PROCEDURE: screening PREOP DIAGNOSIS: diagnostic PLANNED PROCEDURE: Operation Date: 10/06/21 07:00 Proposed Procedures p Colonoscopy 52072 C20(Not Applicable) - David Humphreys MD Medications/Allergies* Home Medications Medication Instructions Recorded Confirmed Type ascorbate calcium (vitamin C) 500 500 mg PO DAILY@10/10/19 10/06/21 History mg tablet carvedilol 3.125 mg tablet 3.125 mg PO BID@10/10/19 10/06/21 History losartan 25 mg tablet 25 mg PO DAILY@10/10/19 10/06/21 History yoohtmvu-vqd-hdvxv acid 300 1 tab PO DAILY@10/10/19 10/06/21 History mcg-lycopene 600 mcg-lutein 300 mcg tablet (Centrum Silver Ultra Men's) omega-3 fatty acids 1,000 mg 1,000 mg PO DAILY@10/10/19 10/06/21 History capsule timolol 0.25 % eye drops 1 drop OPHTHALMIC (EYE) DAILY@10/10/19 10/06/21 History cholecalciferol (vitamin D3) 10 10 mcg PO DAILY@04/29/20 10/06/21 History mcg (400 unit) capsule Allergies/Adverse Reactions Allergy/AdvReac Type Severity Reaction Status Date / Time clindamycin [From Cleocin] Allergy Unknown Verified 10/06/21 06:15 Sulfa (Sulfonamide Allergy UNKNOWN Verified 10/06/21 06:15 Antibiotics) Current Medications: Generic Name Dose Route Start Last Admin Trade Name Freq PRN Reason Stop Dose Admin Sodium Chloride 1,000 mls @ 30 mls/hr 10/06/21 06:30 10/06/21 06:35 Sodium Chloride 0.9% IV 30 mls/hr .Q24H YOANA Administration Pertinent History/Comorbid Conditions* Medical History (Updated 09/21/21 @ 09:23 by David Humphreys MD) BPH loc w urin obs/LUTS History of kidney stones History of left inguinal hernia HTN (hypertension) Incomplete bladder emptying Rectal cancer Recurrent UTI Surgical History (Updated 09/21/21 @ 09:23 by David Humphreys MD) History of appendectomy History of back surgery History of bowel resection APR History of colonoscopy History of tonsillectomy Status post recent transurethral resection of prostate Family History Father, AT AGE 86-LEUKEMIA Mother Social History Smoking and tobacco status: never smoked Alcohol intake: never Adopted: No Caregiver/support person: No Lives independently: No Household members: spouse Marital status: Current occupational status: retired History of recent travel: No Pertinent Exam Findings alert, oriented x 3 and regular rate & rhythm Recommendations Surgery/Procedure today Coding Level of Care Code Acute Admissions Consultant for Marija Bonilla
--- NOTE | 2021-10-06 09:29 | ANES.PREANE2 ---
Pre-Anesthetic Assessment Height/Weight: Height 1.78 m Weight 104.326 kg Temp Pulse Resp BP Pulse Ox 97.8 F 80 18 155/94 94 10/06/21 06:21 10/06/21 06:21 10/06/21 06:21 10/06/21 06:21 10/06/21 06:21 Preop Diagnosis: diagnostic Operation Date: 10/06/21 07:00 Proposed Procedures p Colonoscopy 33080 C20(Not Applicable) - David Humphreys MD Familial anesthetic complications: None Was Beta Robbi taken within 24 hours: Yes Was Clonidine taken within 24 hours: N/A Last intake: Intake Last Liquid Date 10/05/21 Last Liquid Time 23:50 Last Solid Date 10/05/21 Last Solid Time 07:30 Social No alcohol and No tobacco Airway Mallampati: Class III Dentition: other (bridges and crowns) Pulmonary Sleep Apnea CV/HEM Hypertension Aortic stenosis - Mild on echo 2020 (EF 68%), grade I diastolic dysfunction Anesthetic Plan ASA status: 3 Anesthesia: MAC Medications/Allergies Home Medications Medication Instructions Recorded Confirmed Last Taken Type ascorbate calcium (vitamin C) 500 500 mg PO DAILY@10/10/19 10/06/21 10/05/21 History mg tablet carvedilol 3.125 mg tablet 3.125 mg PO BID@10/10/19 10/06/21 10/06/21 History losartan 25 mg tablet 25 mg PO DAILY@10/10/19 10/06/21 10/05/21 History esnugeky-vyj-onjjg acid 300 1 tab PO DAILY@10/10/19 10/06/21 10/05/21 History mcg-lycopene 600 mcg-lutein 300 mcg tablet (Centrum Silver Ultra Men's) omega-3 fatty acids 1,000 mg 1,000 mg PO DAILY@10/10/19 10/06/21 10/05/21 History capsule timolol 0.25 % eye drops 1 drop OPHTHALMIC (EYE) DAILY@10/10/19 10/06/21 10/06/21 History cholecalciferol (vitamin D3) 10 10 mcg PO DAILY@04/29/20 10/06/21 10/05/21 History mcg (400 unit) capsule Allergies Allergy/AdvReac Type Severity Reaction Status Date / Time clindamycin [From Cleocin] Allergy Unknown Verified 10/06/21 06:15 Sulfa (Sulfonamide Allergy UNKNOWN Verified 10/06/21 06:15 Antibiotics) Current Medications Generic Name Dose Route Start Last Admin Trade Name Anish PRN Reason Stop Dose Admin Sodium Chloride 1,000 mls @ 30 mls/hr 10/06/21 06:30 10/06/21 06:35 Sodium Chloride 0.9% IV 30 mls/hr .Q24H YOANA Administration PFSH Anesthesia Medical History (Updated 09/21/21 @ 09:23 by David Humphreys MD) BPH loc w urin obs/LUTS History of kidney stones History of left inguinal hernia HTN (hypertension) Incomplete bladder emptying Rectal cancer Recurrent UTI Surgical History (Updated 09/21/21 @ 09:23 by David Humphreys MD) History of appendectomy History of back surgery History of bowel resection APR History of colonoscopy History of tonsillectomy Status post recent transurethral resection of prostate Family History Father , AT AGE 86-LEUKEMIA No problems noted. Mother No problems noted. Social History Smoking and tobacco status: never smoked Alcohol intake: never Adopted: No Caregiver/support person: No Lives independently: No Household members: spouse Marital status: Current occupational status: retired History of recent travel: No Data Anesthesia Cardiac Studies: Echocardiogram Ultrasound 10/01/20
[2021-10-06 10:21] VITALS: BP 143/106; PULSE 81; RESP 20; TEMP 36.2; O2SAT 96
[2021-10-06 10:37] VITALS: BP 148/90; PULSE 70; RESP 18; O2SAT 96
--- NOTE | 2021-10-06 12:55 | ANE.PACU2 ---
Inpatient post-anesthesia follow up: Airway intact: Yes Vital signs: Temperature 97.1 F Pulse Rate 70 Respiratory Rate 18 Blood Pressure 148/90 Pulse Oximetry 96 Oxygen Delivery Me thod Room Air Oxygen Flow Rate 4 Fraction of Inspir ed Oxygen Hydration adequate: Yes Nausea and vomiting: Yes Pain level: 2
== END 2021-10-06 10:50 | disposition home or self-care (01) ==
PROVIDERS: PCP Family Medicine; Visit Provider Surgery
PROC: 0DJD8ZZ Inspection of Lower Intestinal Tract, Via Natural or Artificial Opening Endoscopic (ICD-10-PCS; CPT 45378; principal; 2021-10-06 07:00)
DX: C20 Malignant neoplasm of rectum (principal); D12.3 Benign neoplasm of transverse colon; N40.1 Benign prostatic hyperplasia with lower urinary tract symptoms; N13.8 Other obstructive and reflux uropathy; I10 Essential (primary) hypertension; G47.30 Sleep apnea, unspecified
CPT/HCPCS: 45380; 88305; J2704; J7030

== ENCOUNTER → 2021-12-07 14:08 | Outpatient (BNVA) | payer MEDICARE, BC, SELFPAY | PROVIDERS: PCP Family Medicine; Visit Provider Internal Medicine Cardiovascular Disease | DX: I35.0 Nonrheumatic aortic (valve) stenosis (principal); R07.9 Chest pain, unspecified; I10 Essential (primary) hypertension | CPT/HCPCS: 99214 ==

== ENCOUNTER → 2022-03-08 11:04 | Outpatient (BNVA) | payer MEDICARE, BC, SELFPAY | PROVIDERS: PCP Family Medicine; Visit Provider Family Medicine | DX: E78.5 Hyperlipidemia, unspecified (principal); I50.9 Heart failure, unspecified | CPT/HCPCS: 80053; 80061; 83880 ==

== ENCOUNTER → 2022-10-19 10:05 | Outpatient (BNVA) | payer MEDICARE, BC, SELFPAY | PROVIDERS: PCP Family Medicine; Referring Provider Dermatology; Visit Provider Specialist | DX: M17.11 Unilateral primary osteoarthritis, right knee (principal) | CPT/HCPCS: 20610; 73560; 73565; 99204; J7327 ==

== ENCOUNTER → 2023-04-03 14:26 | Outpatient (BNVA) | payer MEDICARE, BC, SELFPAY | PROVIDERS: PCP Family Medicine; Visit Provider Internal Medicine Cardiovascular Disease | DX: Z01.810 Encounter for preprocedural cardiovascular examination (principal); I10 Essential (primary) hypertension; I35.0 Nonrheumatic aortic (valve) stenosis; Z87.898 Personal history of other specified conditions | CPT/HCPCS: 99214 ==

== ENCOUNTER → 2023-04-20 09:35 | Outpatient (BNVA) | payer MEDICARE, BC, SELFPAY | PROVIDERS: PCP Family Medicine; Visit Provider Specialist | DX: M17.11 Unilateral primary osteoarthritis, right knee; Z01.818 Encounter for other preprocedural examination | CPT/HCPCS: 20610; 73560; 73565; 80053; 99214 ==

== ENCOUNTER 2023-04-24 08:23 | Outpatient (CLI) | payer MEDICARE, BC, SELFPAY ==
[2023-04-24 08:29] LABS: Add Urine Microscopic? NO; Charge for UA Resulting for Rev
--- NOTE | 2023-04-24 08:30 | CT_ITS ---
WS: [id number] CT RIGHT KNEE, NONCONTRAST TECHNIQUE: Noncontrast CT of the RIGHT knee with coronal and sagittal reformatted images CLINICAL INFORMATION: knee pain COMPARISON: None. DLP: 338.[address] scans at [facility] use at least one of these dose optimization techniques: automated e xposure control; mA and/or kV adjustment per patient size (includes targeted exams where dose is matc hed to clinical indication); or iterative reconstruction. FINDINGS: Moderate to advanced tricompartmental arthritis. Hypertrophic patella. Hypertrophic changes along the joint line. Narrowing of the medial joint compartment with zwyi-mc-rhsa articulation and subchondral sclerosis. Vascular calcification. Distal quadriceps and patellar tendons appear intact. Trace supra patellar fluid. Advanced general narrowing of the patellofemoral articulation. Hypertrophic patella. IMPRESSION: 1. Moderate to advanced tricompartmental arthritis RIGHT knee worse in the medial joint compartment and patellofemoral articulation. 2. Subchondral sclerosis and wmzk-em-mjne articulation medial joint compartment. Hypertrophic change s along the joint line. 3. Trace suprapatellar fluid. 4. Hypertrophic patella. 5. Vascular calcification. 6. No other acute findings.
[2023-04-24 10:20] LABS: Bilirubin Urine Neg (Negative); Blood Urine Neg (Negative); Glucose Urine UA Norm (Normal); Ketones Urine Negative (Negative); Leukocyte Esterase Urine Negative (Negative); Nitrate Urine Negative (Negative); Protein Urine Neg (Negative); Specific Gravity, Urine 1.025 (1.005-1.030); Urine Appearance Clear (CLEAR); Urine Color Yellow (Yellow); Urobilinogen Urine Norm (Negative); pH Urine 5 (5-7)
== END 2023-04-24 08:24 | disposition home or self-care (01) ==
PROVIDERS: PCP Family Medicine; Visit Provider Specialist
DX: M17.11 Unilateral primary osteoarthritis, right knee (principal); M89.38 Hypertrophy of bone, other site; Z01.89 Encounter for other specified special examinations
CPT/HCPCS: 73700; 81003

== ENCOUNTER 2023-04-28 12:19 | Outpatient (CLI) | payer MEDICARE, BC, SELFPAY ==
--- NOTE | 2023-04-28 12:30 | CT_ITS ---
WS: [id number] CT RIGHT KNEE, NONCONTRAST TECHNIQUE: Noncontrast CT of the RIGHT knee to include the RIGHT hip and ankle. [facility] CLINICAL INFORMATION: M17.11 - Unilateral primary osteoarthritis, right knee COMPARISON: CT 04/24/2023 DLP: 1024.[address] scans at [facility] use at least one of these dose optimization techniques: automated e xposure control; mA and/or kV adjustment per patient size (includes targeted exams where dose is matc hed to clinical indication); or iterative reconstruction. FINDINGS: Moderate to advanced tricompartmental arthritis unchanged. Hypertrophic patella. Hypertrophic change s along the joint line. Narrowing of the medial joint compartment with rvmr-el-jhvk articulation and subchondral sclerosis. Vascular calcification. Trace suprapatellar fluid. Advanced degenerative narro wing of the patellofemoral articulation. Hypertrophic patella. Hypertrophic changes with degenerative arthritis sacroiliac joints. Enlarged prostate measuring 5.5 c m. Recommend correlation PSA. Evidence of bladder outlet obstruction. Partially visualized LEFT lower quadrant fat-containing spigelian hernia. Fat-containing parastomal h ernia at the colostomy partially visualized. IMPRESSION: Images obtained for preoperative purposes.
== END 2023-04-28 12:20 | disposition home or self-care (01) ==
PROVIDERS: PCP Family Medicine; Visit Provider Specialist
DX: M17.11 Unilateral primary osteoarthritis, right knee (principal)
CPT/HCPCS: 73700

== ENCOUNTER 2023-05-04 12:07 | Observation (INO) | payer MEDICARE, BC, SELFPAY ==
[2023-05-01 08:47] VITALS: BMI 34.7
[2023-05-04] VITALS (23 sets, daily range): BP systolic 156–182; BP diastolic 79–103; PULSE 53–86; RESP 9–28; TEMP 36.2–36.9; O2SAT 92–100; BMI 34.7
--- NOTE | 2023-05-04 07:03 | ECG_ITS ---
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 Measurements Intervals [place] Rate: 70 P: 18 WA: 222 QRS: 39 QRSD: 148 T: 34 QT: 414 QTc: 448 Interpretive Statements SINUS RHYTHM WITH FIRST DEGREE AV BLOCK WITH OCCASIONAL SUPRAVENTRICULAR PREMATURE COMPLEXES RIGHT BUNDLE BRANCH BLOCK [120+ ms QRS DURATION, UPRIGHT V1, 40+ ms S IN I/aVL/V4/V5/V6] Compared to ECG 08/29/2020 15:47:52 Right bundle-branch block now present Sinus bradycardia no longer present Electronically Signed On 05-04-2023 10:13:56 CDT by Jeremías Syed M.D. [id number]
[2023-05-04] MEDS: acetaminophen 1,000 MG/100 ML PIGGYBACK 400 MG IV ×2 (07:10→17:00)
[2023-05-04] MEDS: CELEcoxib 200 mg Capsule 400 MG PO (07:11)
[2023-05-04] MEDS: gabapentin 300 mg Capsule PO (07:11)
[2023-05-04] MEDS: sodium chloride 0.9% 1,000 ML 30 ML IV (07:12)
--- NOTE | 2023-05-04 08:12 | P.HPUD_ITS ---
Surgery/Procedure H&P Update DATE OF PROCEDURE: May 04, 2023 DATE H&P PERFORMED: 04/28/23 H&P UPDATE INFORMATION: I have reviewed H&P completed within last 30 days, I have examined patient prior to procedure, No changes to prior documentation and H&P is in [facility] EMR on date indicated PLANNED PROCEDURE: Operation Date: 05/04/23 08:00 Proposed Procedures p RIGHT TOTAL KNEE ARTHROPLASTY WITH ARTI GUIDANCE 81000,M17.10(Right) - Jen Dudley MD Related Problem List Diagnoses (1) Primary osteoarthritis of right knee:
--- NOTE | 2023-05-04 08:15 | ANES.PREANE2 ---
Pre-Anesthetic Assessment Height/Weight: Height 1.75 m Weight 106.594 kg Temp Pulse Resp BP Pulse Ox O2 Del Method 97.8 F 75 17 178/103 94 Room Air 05/04/23 06:48 05/04/23 06:48 05/04/23 06:48 05/04/23 06:48 05/04/23 06:48 05/04/23 06:48 Operation Date: 05/04/23 08:00 Proposed Procedures p RIGHT TOTAL KNEE ARTHROPLASTY WITH ARTI GUIDANCE 55715,M17.10(Right) - Jen Dudley MD Familial anesthetic complications: none Was Beta Robbi taken within 24 hours: Yes Was Clonidine taken within 24 hours: N/A Last intake: Intake Last Liquid Date 05/03/23 Last Liquid Time 21:00 Last Solid Date 05/03/23 Last Solid Time 17:00 Social No alcohol and No tobacco Exam alert, oriented x 3, clear to auscultation bilaterally and regular rate & rhythm Airway Mallampati: Class III Dentition: other (bridges and crowns) Pulmonary Sleep Apnea CV/HEM Hypertension mild as Anesthetic Plan ASA status: 2 Anesthesia: Regional (specify below) Risk of > 500 ml blood loss (7ml/kg in children): Yes, adequate IV access and fluids planned Medications/Allergies Home Medications Medication Instructions Recorded Confirmed Last Taken Type ascorbate calcium (vitamin C) 500 500 mg PO DAILY@10/10/19 05/01/23 04/25/23 History mg tablet [id number]-[id number]-[id number] acid 300 1 tab PO DAILY@10/10/19 05/01/23 04/25/23 History mcg-lycopene 600 mcg-lutein 300 mcg tablet (Centrum Silver Ultra Men's) omega-3 fatty acids 1,000 mg 1,000 mg PO DAILY@10/10/19 05/01/23 04/25/23 History capsule timolol 0.25 % eye drops 1 drop ophthalmic (eye) DAILY@10/10/19 05/04/23 05/04/23 History cholecalciferol (vitamin D3) 10 10 mcg PO DAILY@04/29/20 05/01/23 04/25/23 History mcg (400 unit) capsule carvedilol 3.125 mg tablet 3.125 mg PO BID@ #180 tabs 08/24/22 05/04/23 05/04/23 Rx guaifenesin 1,200 mg tablet, 1,200 mg PO BID PRN Cough 04/03/23 05/01/23 Unknown History extended release 12 hr (Mucinex) losartan 25 mg tablet 25 mg PO DAILY 05/01/23 05/01/23 04/30/23 History Allergies Allergy/AdvReac Type Severity Reaction Status Date / Time clindamycin [From Cleocin] Allergy Unknown Verified 05/01/23 08:43 Sulfa (Sulfonamide Allergy UNKNOWN Verified 05/01/23 08:43 Antibiotics) Current Medications Generic Name Dose Route Start Last Admin Trade Name Freq PRN Reason Stop Dose Admin Sodium Chloride 1,000 mls @ 30 mls/hr 05/04/23 06:45 05/04/23 07:12 Sodium Chloride 0.9% IV 05/05/23 06:44 30 mls/hr .Q24H YOANA Administration PFSH Anesthesia Medical History BPH loc w urin obs/LUTS History of kidney stones History of left inguinal hernia HTN (hypertension) Incomplete bladder emptying Rectal cancer Recurrent UTI Surgical History History of appendectomy History of back surgery History of bowel resection APR History of colonoscopy (10/06/21) History of tonsillectomy Status post recent transurethral resection of prostate Family History Father , AT AGE 86-LEUKEMIA No problems noted. Mother No problems noted. Social History Smoking and tobacco status: never smoked Alcohol intake: never Adopted: No Caregiver/support person: No Lives independently: No Household members: spouse Marital status: Current occupational status: retired Data Anesthesia Cardiac Studies: Echocardiogram Ultrasound 10/01/20
[2023-05-04] MEDS: ceFAZolin 2,000 MG in sodium chloride 0.9% (plus) 50 ML 100 MG IV ×2 (08:16→17:00)
--- NOTE | 2023-05-04 08:16 | ANES.PROC ---
Anesthesia Procedures Procedure/Date: 05/04/23 Nerve Block ^: Nerve Block 1: Main Anesthesia: spinal anesthesia block Time Out Performed: Yes Consent: requested by attending/covering physician, from patient, from other, risks and benefits reviewed and patient agrees to proceed Nerve block location: adductor canal (R) Anesthesia monitors applied: pulse oximetry, EKG, BP cuff and oxygen Nerve block position: supine Anesthetic Used: ropivicaine 0.5% (30 ml) and with decadron (4 mg) Ultrasound used to: visualize and ID femerol nerve Nerve Stimulator Used?: No Interscalene/Femoral BLK: 4 stimuplex 21 g needle used for position and inplane approach, visualize local anesthetic spread and no vascular puncture identified Injection: neg aspiration of heme Patient Tolerated Procedure: well Complications: none
[2023-05-04] MEDS: vancomycin 1,000 MG SDV 1000 MG XX (09:18)
[2023-05-04] MEDS: BUPivacaine 0.5% INJ 30 mL INJECTION (09:19)
[2023-05-04] MEDS: BUPivacaine liposome 13.3 mg/mL SDV 10 mL 266 MG INFILTRATI (09:19)
[2023-05-04] MEDS: ceFAZolin 1,000 mg SDV 4000 MG IRRIGATION (09:19)
--- NOTE | 2023-05-04 12:04 | XR_ITS ---
WS: [id number] Exam: XR knee RT 1-2V [id number] Date/Time of Exam: 05/04/2023 12:14 PM Reason For Exam: Status post total knee arthroplasty Comparison 04/20/2023. Total knee prosthesis has been placed and is in excellent position. Postoperative changes in the chace cent soft tissues. Anterior surgical skin clips. IMPRESSION: 1. Total knee arthroplasty in excellent position.
--- NOTE | 2023-05-04 12:06 | PM.OP ---
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 Procedure done: Right total knee arthroplasty with Baron guidance Implants: The Candice total knee system with a size 7 triathlon beaded cruciate retaining femur right, a triathlon titanium tibial component size?7 beaded, a triathlon X3 tibial bearing CS insert size 7 X 9 no mm and a beaded triathlon titanium asymmetric patella size 40 x 11 mm Specimens removed/disposition: Bone, disposed of Pathology: none sent Surgeon: Jen Dudley Street Light Wirer: [facility] operating room technicians Anesthesia: General (Intubated following failed attempt at spinal with preoperative adductor block, ASA 2) Estimated blood loss (mL): 175 Tourniquet time (min): 0 (Not utilized) IV fluids (mL): 1,100 Urine output (mL): 250 Complications: None Findings: Severe degenerative osteoarthritis with varus deformity, flexion contracture, and complete loss of cartilage. Condition: stable Disposition: PACU (Then to floor for postoperative rehabilitation and pain management) Brief History: This 82-year-old gentleman has been seen in my office for injections and other nonoperative measures regarding his severe bilateral osteoarthritis of the knees. He noted injections are lasting less and less long. He had significant limitations in his activities of daily living. After discussion in the office, the patient wished to proceed with operative intervention in the form of Baron assisted right total knee arthroplasty. Risks and complications were discussed with the patient and his son. Questions were answered and consents were signed while the patient was in the office. On the morning of surgery, the patient was seen and wished to proceed. Procedure: The patient was brought to the operating theater, and after undergoing attempted spinal anesthesia, anesthetic plan was converted to general anesthesia, intubated. The patient also had a supplemental adductor block, ASA 2. Following this, the right lower extremity was prepped with Dura-Prep and draped in usual fashion following placement of a tourniquet high on the leg. The leg was then draped free.? Tourniquet was not elevated during the case.? A surgical pause was performed, and at the time of the surgical pause, we confirmed the site and side of surgery. Additionally, we confirmed the appropriate and timely administration of preoperative antibiotics, Ancef 2 g and Transexemic acid 1 g.? The availability of equipment was confirmed, and the patient's identity was verbalized as well.? An additional transexemic acid 1 g will be given on the floor as well. Following the surgical pause, an incision was made centering over the patella continuing proximally and distally as necessary to allow access to the knee joint. Dissection continued through skin and soft tissues using a scalpel. Hemostasis was obtained using electrocautery. The skin incision was followed by a median parapatellar arthrotomy. The leg was extended and the patella was able to be displaced laterally without difficulty.? Medial release was initially accomplished to allow placement for the Baron array.? Appropriate arrays and markers were placed in appropriate position for use of the Baron.? Preoperative planning had been accomplished and was discussed in detail with the Baron franchise sales representative.? Intraoperative mapping of the femur and tibia was accomplished after the arrays were placed.? Internal markers were also placed.? Once we had accomplished the Baron mapping, we began the appropriate resections for placement of the prosthesis.? The plan was for a cruciate retaining right total knee arthroplasty.? Medial releases were accomplished prior to the surgical procedure to allow balancing of the knee. Once appropriate mapping had been accomplished retraction was established using manual retraction by surgical technicians and also the Baron leg positioner and retractors.? The knee was evaluated.? There was significant osteoarthritic change with significant osteophyte formation and significant varus.? First cuts were made on the femur. Appropriate resection of bone was accomplished with the Baron guidance. The femur was sized to a size 7. Following the tibial cut, the tibia also sized to a size 7. Osteophytes were removed prior to beginning bony resection. A trial reduction was accomplished after osteophytes have been removed as well as the medial and lateral menisci.? We had removed the anterior cruciate ligament at the beginning of the case and preserved the posterior cruciate ligament.? Trial reduction was accomplished with a size 7 femoral posterior cruciate retaining component and a size 7 tibial tray with a size 7 x 9 CS tibial bearing insert.? Alignment and balance were felt to be appropriate.? Trial components were removed after the femur had been drilled.? Prior to removal of the tibial tray which had been pinned in position with appropriate rotation as determined by the Baron plan, we broached the tibia.? Subsequently, the 4 drill holes were made for the prosthetic component.? All trial components were removed, and the wound was irrigated.? Plans were made for insertion of the prosthetic components.? Prior to this, the patella was manually prepared.? After resection of the articular surface with the patellar cash, it was measured and measured a 40 mm patella.? We resected approximately 11 mm of patella.? Patellar height was restored with the patellar component. Once again, the wound was irrigated.? The Tritanium tibia was impacted into position.? The beaded femur was then impacted into position in a cementless fashion. The CS tibial insert was placed prior to placement of the femoral component. The patella was pressed into position with a patellar clamp.? Exparel was injected about the components deep and superficially.? The knee was then copiously irrigated with betadine and saline and suctioned dry.? Further irrigation was accomplished with saline following the Betadine.? Attention was then directed to closure. Closure was accomplished with 0 Vicryl in the fascial tissues.? This was followed by Surgiflo and vancomycin powder.? Following this, a 2-0 Monocryl was used in the subcutaneous tissues, and this closure was supplemented with #1 strata fix suture x2. The skin was closed with skin lupe.? Care was taken to assure an excellent subcutaneous as well as skin closure.? A sterile dressing was then placed consisting of Dermabond Prineo, OpSite, sterile soft roll including over the foot, and an Dmitriy wrap. The patient was returned the Recovery Room in a satisfactory condition. X-rays were obtained and reviewed there.? The patient will be discharged to the floor for postoperative rehabilitation and pain management. Related Problem List Diagnoses (1) Primary osteoarthritis of right knee:
--- NOTE | 2023-05-04 13:10 | ANE.PACU2 ---
Inpatient post-anesthesia follow up: Airway intact: Yes Vital signs: Temperature 98.4 F Pulse Rate 60 Respiratory Rate 17 Blood Pressure 174/92 Pulse Oximetry 97 Oxygen Delivery Me thod Nasal Cannula Oxygen Flow Rate 6 Fraction of Inspir ed Oxygen Hydration adequate: Yes Nausea and vomiting: No Pain level: 1 Mental status: Baseline
[2023-05-04] MEDS: oxyCODONE 5 mg IR Tab/Cap PO (14:52)
[2023-05-04] MEDS: calcium carbonate 500 mg Chew Tablet 1000 MG PO (17:38)
[2023-05-04] MEDS: carvedilol 3.125 mg Tablet PO (17:38)
[2023-05-04] MEDS: iron polysaccharide complex 150 mg Capsule PO (17:38)
[2023-05-04] MEDS: chlorhexidine gluconate 0.12% Btl 473 mL 30 ML MUCOUS MEM ×2 (17:41→20:29)
[2023-05-04] MEDS: mupirocin oint 22 gm 1 APPLIC NASAL (17:41)
[2023-05-05] VITALS: BP 132/81; PULSE 98; RESP 16; TEMP 36.6; O2SAT 94
[2023-05-05] MEDS: acetaminophen 1,000 MG/100 ML PIGGYBACK 400 MG IV ×2 (00:14→08:28)
[2023-05-05] MEDS: ceFAZolin 2,000 MG in sodium chloride 0.9% (plus) 50 ML 100 MG IV ×2 (00:15→08:35)
[2023-05-05 03:59] VITALS: BP 140/89; PULSE 91; RESP 16; TEMP 36.5; O2SAT 95
[2023-05-05 05:45] LABS: Basophils % 0.1 %; Hematocrit 39.5 % (37-53); Lymphocytes # 1.2 10^3/uL (0.8-4.8); Lymphocytes % 5.8 %; Mean Corpuscular HGB Conc 33.2 g/dL (30-55); Mean Corpuscular Hemoglobin 31.1 pg (27-33); Mean Corpuscular Volume 93.8 fl (82-101); Mean Platelet Volume 10.1 fL (7.4-10.4); Monocytes # 1.4 10^3/uL (0.2-0.9); Monocytes % 6.8 %; Neutrophils # 18.19 10^3/uL (1.8-7.7); Neutrophils % 86.7 %; Nucleated Red Blood Cells % 0 %; Platelet Count 230 10^3/cmm (157-399); Red Blood Count 4.21 10^6/uL (3.85-5.65); Red Cell Distribution Width 13.8 % (12.1-15.1); White Blood Count 20.99 10^3/uL (3.29-11.43)
[2023-05-05 06:11] LABS: Anion Gap 16.4 (5-19); Blood Urea Nitrogen 19 mg/dL (8-23); Calcium 8.5 mg/dL (8.5-10.5); Carbon Dioxide 20 mmol/L (22-29); Chloride 108 mmol/L (98-107); Glucose 211 mg/dL (65-115); Osmolality Calculated 299 mOsm/kg (285-295); Potassium 4.4 mmol/L (3.5-5.1); Sodium 140 mmol/L (136-145)
[2023-05-05 07:37] VITALS: RESP 18
[2023-05-05] MEDS: oxyCODONE 5 mg IR Tab/Cap PO (07:37)
[2023-05-05 08:00] VITALS: BP 130/71; PULSE 84; RESP 17; TEMP 36.7; O2SAT 94
[2023-05-05] MEDS: calcium carbonate 500 mg Chew Tablet 1000 MG PO (08:15)
[2023-05-05] MEDS: aspirin 325 mg EC Tablet PO (08:16)
[2023-05-05] MEDS: cholecalciferol (vitamin D3) 1,000 unit Tablet 1000 UNIT PO (08:16)
[2023-05-05] MEDS: multivitamin therapeutic Tablet 1 TAB PO (08:16)
[2023-05-05] MEDS: carvedilol 3.125 mg Tablet PO (08:16)
[2023-05-05] MEDS: iron polysaccharide complex 150 mg Capsule PO (08:16)
[2023-05-05 08:17] VITALS: BP 140/89
[2023-05-05] MEDS: CELEcoxib 200 mg Capsule PO (08:17)
[2023-05-05] MEDS: losartan 50 mg Tablet 25 MG PO (08:17)
[2023-05-05] MEDS: chlorhexidine gluconate 0.12% Btl 473 mL 30 ML MUCOUS MEM ×2 (08:38→13:02)
[2023-05-05] MEDS: mupirocin oint 22 gm 1 APPLIC NASAL (08:38)
[2023-05-05] MEDS: timolol 0.25% Op Soln 5 mL Btl 1 DROP EYEAFF (09:19)
[2023-05-05 12:00] VITALS: BP 133/82; PULSE 70; RESP 17; TEMP 36.4; O2SAT 96
--- NOTE | 2023-05-05 14:24 | PM.DCS ---
Discharge Providers Date of Admission: 05/04/23 12:07 Date of Discharge: May 05, 2023 Attending Provider at Admission: Jen Dudley MD Attending Provider at Discharge: Jen Dudley MD Primary Care Provider: Mustapha Mendoza MD Diagnoses at Discharge Discharge Diagnosis (1) Status post total right knee replacement not using cement: Status: Acute Permanent problem details: Date of procedure: May 04, 2023 Diagnosis: Primary osteoarthritis right knee with varus deformity and flexion contracture Procedure done: Right total knee arthroplasty with Baron guidance Implants: The [employer] total knee system with a size 7 triathlon beaded cruciate retaining femur right, a triathlon titanium tibial component size 7 beaded, a triathlon X3 tibial bearing CS insert size 7 X 9 no mm and a beaded triathlon titanium asymmetric patella size 40 x 11 mm (2) Primary osteoarthritis of right knee: Status: Acute Reason for Visit Reason for Visit: 88244 M17.10 Brief History: This 82-year-old gentleman has been seen in my office for injections and other nonoperative measures regarding his severe bilateral osteoarthritis of the knees.? He noted injections are lasting less and less long.? He had significant limitations in his activities of daily living.? After discussion in the office, the patient wished to proceed with operative intervention in the form of Baron assisted right total knee arthroplasty.? Risks and complications were discussed with the patient and his son.? Questions were answered and consents were signed while the patient was in the office.? On the morning of surgery, the patient was seen and wished to proceed. Hospital Course Hospital Course Patient was admitted under observation status following right total knee arthroplasty. He did well with physical therapy. In fact, last evening, he was up and walking with therapy and there was some consideration of early discharge. Today, he continues to work with therapy. He is felt to be safe on stairs. He has no concerns. His son is seen with him and also has no concerns regarding discharge to home. He will have home physical therapy. Physical Exam Const: COMMON NORMALS: no acute distress, average body habitus, patient oriented x3 and alert GENERAL APPEARANCE: cooperative and comfortable ORIENTATION/CONSCIOUSNESS: Yes awake HENMT: COMMON NORMALS: normocephalic and atraumatic HEAD & SCALP: normocephalic and atraumatic Eye: GENERAL EYE: appearance normal, both eyes and all related structures Chest: COMMONS NORMALS: normal inspection of the chest Resp: COMMON NORMALS: normal respiratory effort EFFORT & INSPECTION: Yes able to speak in complete sentences and Yes symmetric chest movement Extremity: RIGHT LOWER EXTREMITY: Yes knee joint (Dressing is removed. Minimal to no swelling.) Right knee: Yes palpation (Minimal tenderness.), Yes ROM (Able to partially straight leg raise) and Yes neurovascular exam (Intact distally with no evidence of DVT) Neuro: COMMON NORMALS: patient oriented x3 SENSORIUM/ORIENTATION: Yes alert Psych: COMMON NORMALS: mental status grossly normal APPEARANCE: Yes grossly normal ATTITUDE: Yes calm and Yes engaged ATTENTION/CONCENTRATION: Yes attention grossly intact Skin: COMMON NORMALS: no rashes or lesions noted GENERAL SKIN EXAM: no rashes or lesions noted Urinary Catheter Management: Kang: Cath Placed During This Visit: yes, but has since been removed by the nurse Reason for Continuing Indwelling Catheter: Other Urinary Catheter Date of Insertion: 05/04/23 Urinary Catheter Time of Insertion: 08:45 Date Urinary Catheter Removed: 05/05/23 Time Urinary Catheter Discontinued: 06:14 Discharge Data Studies Completed and Pending Completed Studies During Hospitalization Category Date Time Status XR knee RT 1-2V 40067 Routine Exams 05/04/23 12:04 Completed Laboratory Results WBC 20.99 10^3/uL (3.29-11.43) H 05/05/23 05:37 RBC 4.21 10^6/uL (3.85-5.65) 05/05/23 05:37 Hgb 13.10 g/dL (11.27-16.99) 05/05/23 05:37 Hct 39.5 % (37-53) 05/05/23 05:37 MCV 93.8 fl (82-101) 05/05/23 05:37 MCH 31.1 pg (27-33) 05/05/23 05:37 MCHC 33.2 g/dL (30-55) 05/05/23 05:37 RDW 13.8 % (12.1-15.1) 05/05/23 05:37 Plt Count 230 10^3/cmm (157-399) 05/05/23 05:37 MPV 10.1 fL (7.4-10.4) 05/05/23 05:37 Neut % (Auto) 86.7 % 05/05/23 05:37 Lymph % (Auto) 5.8 % 05/05/23 05:37 Caldwell % (Auto) 6.8 % 05/05/23 05:37 Eos % (Auto) 0.0 % 05/05/23 05:37 Baso % (Auto) 0.1 % 05/05/23 05:37 Neut # (Auto) 18.19 10^3/uL (1.8-7.7) H 05/05/23 05:37 Lymph # (Auto) 1.2 10^3/uL (0.8-4.8) 05/05/23 05:37 Caldwell # (Auto) 1.4 10^3/uL (0.2-0.9) H 05/05/23 05:37 Eos # (Auto) 0.0 10^3/uL (0.0-0.8) 05/05/23 05:37 Baso # (Auto) 0.0 10^3/uL (0.0-0.1) 05/05/23 05:37 Nucleated RBC % (auto) 0 % 05/05/23 05:37 Nucleated RBCs # 0.0 /100WBC 05/05/23 05:37 Sodium 140 mmol/L (136-145) 05/05/23 05:37 Potassium 4.4 mmol/L (3.5-5.1) 05/05/23 05:37 Chloride 108 mmol/L (98-107) H 05/05/23 05:37 Carbon Dioxide 20 mmol/L (22-29) L 05/05/23 05:37 Anion Gap 16.4 (5-19) 05/05/23 05:37 BUN 19 mg/dL (8-23) 05/05/23 05:37 Creatinine 1.0 mg/dL (0.7-1.2) 05/05/23 05:37 GFR Calculation Not Reportable 05/05/23 05:37 Glucose 211 mg/dL (65-115) H 05/05/23 05:37 Calculated Osmolality 299 mOsm/kg (285-295) H 05/05/23 05:37 Calcium 8.5 mg/dL (8.5-10.5) 05/05/23 05:37 Vitals Last Vital Signs Temp 97.5 F L 05/05/23 12:00 Pulse 70 05/05/23 12:00 Resp 17 05/05/23 12:00 BP 133/82 05/05/23 12:00 Pulse Ox 96 05/05/23 12:00 O2 Del Method Room Air 05/05/23 03:59 O2 Flow Rate 6 05/04/23 11:58 Discharge Plan Discharge Patient Disposition: Home Health Service Condition: Stable Prescriptions: New oxycodone 5 mg Tablet 5 mg PO Q4H PRN (Reason: Moderate Pain) 7 Days Qty: 30 0RF aspirin 325 mg Tablet,Delayed Release (Dr/Ec) 325 mg PO DAILY 30 Days Qty: 0 0RF celecoxib 200 mg Capsule 200 mg PO DAILY 30 Days Qty: 30 0RF acetaminophen 500 mg Tablet 1,000 mg PO Q8H 15 Days Qty: 0 0RF Continued cholecalciferol (vitamin D3) 10 mcg (400 unit) capsule 10 mcg PO DAILY@08 omega-3 fatty acids 1,000 mg capsule 1,000 mg PO DAILY@08 ascorbate calcium (vitamin C) 500 mg tablet 500 mg PO DAILY@08 Centrum Silver Ultra Men's 300-600-300 mcg tablet 1 tab PO DAILY@08 timolol 0.25 % drops 1 drop ophthalmic (eye) DAILY@08 Mucinex 1,200 mg tablet extended release 12hr 1,200 mg PO BID PRN (Reason: Cough) carvedilol 3.125 mg tablet 3.125 mg PO BID@08,18 Qty: 180 3RF losartan 25 mg tablet 25 mg PO DAILY Rx Instructions: TAKE 1 TABLET ONCE DAILY Discharge Orders: Discharge Order (Routine); Ordered 05/05/23 Ordered By: Jen Dudley Other Ambulatory Orders: DME: Walker (Order) Location: None Selected Ordered By: Jen Dudley [place] [facility] [place] [facility] [place] [facility] [place]Outside] Jen Dudley MD [Physician] - 05/17/23 8:30 am Mustapha Mendoza MD [Primary Care Provider] - (We have notified your physician's clinic of the need for a follow-up appointment to be scheduled. If you have not heard from them within the next 2 business days, please call them directly. You may also reach out to our documentation manager at [phone] and she can assist you.) Discharge Diet: Advance as tolerated and Usual diet Discharge Activity: Increase activity as tolerated, Limit activity as instructed, Use walker/crutches as instructed and As per PT/OT instructions Patient Instructions: Aspirin (By mouth), Oxycodone, Rapid Release (By mouth), Celecoxib (By mouth), Total Knee Replacement (GEN), Joint Replacement Stoplight, Opioid Safety Activity Restrictions/Additional Instructions: Ice to right knee. Elevate. Maintain dressing until it comes off on its own. You may shower, but do not soak in a tub. Discharge Attestations Time Spent in Discharge Care*: greater than 30 min Specific Discharge Activities: educating patient, documenting/other paperwork and evaluating patient/reviewing data Quality Metrics Clinical Quality Measures [ No reported AMI, CVA or VTE this stay] Coding Level of Care Code Acute Code for Chg Fwd Diagnoses Status post total right knee replacement not using cement Z96.651 Primary osteoarthritis of right knee M17.11
== END 2023-05-05 15:06 | disposition home health service (06) ==
LOC: MEDSURG 12:07
PROVIDERS: Admitting Provider Specialist; PCP Family Medicine; Visit Provider Specialist
PROC: 8E0Y0CZ Robotic Assisted Procedure of Lower Extremity, Open Approach (ICD-10-PCS; CPT 27447; principal; 2023-05-04 08:00)
DX: M17.11 Unilateral primary osteoarthritis, right knee (principal); N40.1 Benign prostatic hyperplasia with lower urinary tract symptoms; N13.8 Other obstructive and reflux uropathy; I10 Essential (primary) hypertension; I45.10 Unspecified right bundle-branch block
CPT/HCPCS: 27447; 36415; 51702; 73560; 80048; 85025; 93005; 97110; 97116; 97161; 97165; 97530; C1776; C9290; G0378; J0131; J0330; J0690; J1100; J1170; J2405; J2704; J2710; J2795; J3010; J3370; J3490; J7030

== ENCOUNTER → 2023-05-17 08:24 | Outpatient (BNVA) | payer MEDICARE, BC, SELFPAY | PROVIDERS: PCP Family Medicine; Visit Provider Nurse Practitioner Family | DX: Z96.651 Presence of right artificial knee joint (principal) | CPT/HCPCS: 73560; 73565; 99024 ==

== ENCOUNTER 2023-05-31 08:20 | Outpatient (RCR) | payer MEDICARE, BC, SELFPAY | END 2023-06-03 23:59 | disposition home or self-care (01) | LOC: SPT 08:20 | PROVIDERS: Visit Provider Nurse Practitioner Family | DX: Z47.1 Aftercare following joint replacement surgery (principal); Z96.651 Presence of right artificial knee joint | CPT/HCPCS: 97110; 97161 ==

== ENCOUNTER 2023-06-04 06:00 | Outpatient (RCR) | payer MEDICARE, BC, SELFPAY | END 2023-06-15 23:59 | disposition home or self-care (01) | LOC: SPT 06:00 | PROVIDERS: Visit Provider Nurse Practitioner Family | DX: Z47.1 Aftercare following joint replacement surgery (principal); Z96.651 Presence of right artificial knee joint | CPT/HCPCS: 97110 ==

== ENCOUNTER → 2023-06-28 13:49 | Outpatient (BNVA) | payer MEDICARE, BC, SELFPAY | PROVIDERS: PCP Family Medicine; Visit Provider Specialist | DX: Z96.651 Presence of right artificial knee joint (principal); M17.11 Unilateral primary osteoarthritis, right knee | CPT/HCPCS: 73560; 73565; 99024 ==

== ENCOUNTER → 2023-11-28 08:45 | Outpatient (BNVA) | payer MEDICARE, OTHER, SELFPAY | PROVIDERS: PCP Family Medicine; Visit Provider Family Medicine | DX: I10 Essential (primary) hypertension (principal); N40.1 Benign prostatic hyperplasia with lower urinary tract symptoms; I35.0 Nonrheumatic aortic (valve) stenosis; G47.33 Obstructive sleep apnea (adult) (pediatric) | CPT/HCPCS: 80053; 80061; 84153; 85025 ==

== ENCOUNTER → 2024-06-26 13:13 | Outpatient (BNVA) | payer MEDICARE, OTHER, SELFPAY | PROVIDERS: PCP Family Medicine; Visit Provider Specialist | DX: Z96.651 Presence of right artificial knee joint (principal); M17.11 Unilateral primary osteoarthritis, right knee | CPT/HCPCS: 73560; 73565; 99213 ==

== ENCOUNTER → 2025-03-19 10:55 | Outpatient (BNVA) | payer MEDICARE, OTHER, SELFPAY | PROVIDERS: PCP Family Medicine; Visit Provider Family Medicine | DX: Z00.00 Encounter for general adult medical examination without abnormal findings (principal); E78.5 Hyperlipidemia, unspecified; Z12.5 Encounter for screening for malignant neoplasm of prostate | CPT/HCPCS: 80053; 80061; 85025; G0103 ==

== ENCOUNTER 2025-05-08 11:03 | Outpatient (CLI) | payer MEDICARE, OTHER, SELFPAY ==
--- NOTE | 2025-05-08 11:15 | USCV_ITS ---
Dwight Cash Age: 84 Gender: M : 1940 Exam Date: 05/08/2025 11:34 Ordering Phys: Mustapha Mendoza MD Technologist: NIXON [place] [facility] [place]: Aortic Stenosis BP: 162 / 85 HR: 65 Rhythm: Sinus Technical Quality: Adequate MEASUREMENTS (Male / Female) Normal Values 2D ECHO LV Diastolic Diameter PLAX 5.8 cm 4.2 - 5.9 / 3.9 - 5.3 cm IVS Diastolic Thickness 1.4 cm 0.6 - 1.0 / 0.6 - 0.9 cm IVS Systolic Thickness 2.2 cm LVPW Diastolic Thickness 1.5 cm 0.6 - 1.0 / 0.6 - 0.9 cm LVPW Systolic Thickness 1.3 cm LVOT Diameter 2.1 cm LV Ejection Fraction 2D Teich 58.5 % LV Ejection Fraction MOD 4C 60.2 % LV Ejection Fraction MOD 2C 58.7 % LV Ejection Fraction 2C AL 60.4 % LA Diameter 4.8 cm RA Systolic Volume 4C AL 35.9 ml RA Systolic Volume 4C MOD 38.2 ml LA Sys Volume AL 62.0 cm cubed LA Sys Volume Index AL 26.7 cm cubed/m squared Aorta at Sinotubular Diameter 2.9 cm M-MODE LA Ao Ratio MM 2.4 AV Cusp Separation MM 0.9 cm DOPPLER AV Peak Velocity 393.5 cm/s LVOT Peak Velocity 120.0 cm/s AV Area Cont Eq vti 1.0 cm squared AV Area Cont Eq pk 1.1 cm squared MV Peak Velocity 147.0 cm/s MV Area PHT 4.4 cm squared Mitral E to A Ratio 0.5 TR Peak Velocity 114.0 cm/s TR Peak Gradient 5.2 mmHg TV Peak E Velocity 56.0 cm/s PV Peak Velocity 140.0 cm/s FINDINGS Left Ventricle Mild to moderate concentric left-ventricular hypertrophy. LV ejection fraction of 59%.Grade I/IV diastolic dysfunction (abnormal relaxation filling pattern), normal to mildly elevated filling pressures. Right Ventricle The right ventricle is normal in size and function. Right Atrium Normal right atrial size. Left Atrium Mildly increased left atrial size. Mitral Valve Thickened mitral valve. Mild mitral valve regurgitation. Aortic Valve Moderate aortic valve stenosis, mean gradient 31. mmHg, ANMOL 1.06cm squared. Peak velocity of 3.92 m/s with a peak gradient of 62 mmHg.moderate aortic valve regurgitation. Tricuspid Valve No gross abnormalities noted Pulmonic Valve No gross abnormalities noted Pericardium No pericardial effusion. Aorta Normal aortic annulus size. IVC Inferior vena cava not visualized. CONCLUSIONS Mild to moderate concentric left-ventricular hypertrophy. LV ejection fraction of 59%.Grade I/IV diastolic dysfunction (abnormal relaxation filling pattern), normal to mildly elevated filling pressures. Moderate aortic valve stenosis, mean gradient 31. mmHg, ANMOL 1.06cm squared. Peak velocity of 3.92 m/s with a peak gradient of 62 mmHg.moderate aortic valve regurgitation. Thickened mitral valve. Mild mitral valve regurgitation. Mildly increased left atrial size. Normal right atrial size. The right ventricle is normal in size and function. There is no pericardial effusion. There are no intracardiac masses. Compared to study from 10/01/2020, there is worsening of the aortic valve stenosis Dr Vannesa Lin MD FACC (Electronically Signed) Final Date: 08 May 2025 20:44 S
== END 2025-05-08 11:04 | disposition home or self-care (01) ==
PROVIDERS: PCP Family Medicine; Visit Provider Family Medicine
DX: I35.0 Nonrheumatic aortic (valve) stenosis (principal); I08.0 Rheumatic disorders of both mitral and aortic valves
CPT/HCPCS: 93306

== ENCOUNTER → 2025-05-16 09:45 | Outpatient (BNVA) | payer MEDICARE, OTHER, SELFPAY | PROVIDERS: PCP Family Medicine; Visit Provider Dermatology | DX: D48.5 Neoplasm of uncertain behavior of skin (principal); L72.0 Epidermal cyst; D17.1 Benign lipomatous neoplasm of skin and subcutaneous tissue of trunk; L82.1 Other seborrheic keratosis; L57.8 Other skin changes due to chronic exposure to nonionizing radiation; L57.0 Actinic keratosis | CPT/HCPCS: 11102; 17000; 99203 ==